=== PATIENT | female | born 1995 | race Caucasian/White ===

== ENCOUNTER 2017-04-29 03:41 | Emergency (ER) | payer OTHER ==
[~2017-04-29] VITALS: Ht 160 cm; Wt 94.0 kg
[~2017-04-29 03:41] MED LIST: FER325 PO
[2017-04-29 03:49] VITALS: Ht 160 cm; Wt 94.0 kg
[2017-04-29] MEDS ORDERED: CIPR7.5D4 RIGHT EAR (04:09)
--- NOTE | 2017-04-29 04:26 | ERA ---
ER Documentation Chief Complaint Date/Time DATE: 04/29/17 TIME: 04:22 Chief Complaint right ear pain x 4 days, 8 weeks HPI This is a 21-year-old female who is 6 weeks G1 p.o. with a chief complaint of right ear discomfort 3 days. Nursing notes says 4 days. Upon asking patient she said it was "less than a week". Patient denies history of trauma, change/loss of hearing, tinnitus, headache, dizziness,or neck stiffness. Vaccination status is up to date. No recent travel. ROS All systems reviewed and are negative except as per history of present illness. Medications Home Meds Active Scripts Ciprofloxacin Hcl/Dexameth (Ciprodex Otic Suspension) 7.5 Ml Drops.susp, 4 DROP RIGHT EAR BID for 7 Days, EA Prov:KJ CHOE PA-C 04/29/17 Reported Medications Ferrous Sulfate* (Ferrous Sulfate*) 325 Mg Tabec, 325 MG PO DAILY 01/11/14 Allergies Allergies: Coded Allergies: No Known Allergies (Verified Allergy, Mild, 06/10/13) PMhx/Soc History of Surgery: Yes (C SECTION,CHOLECYSTECTOMY) Anesthesia Reaction: No Hx Neurological Disorder: No Hx Respiratory Disorders: No Hx Cardiac Disorders: Yes (HIGH CHOL NO MEDS) Hx Psychiatric Problems: No Hx Miscellaneous Medical Probl: No Hx Alcohol Use: Yes (occassionally drinks beer) Hx Substance Use: Yes Hx Tobacco Use: No Smoking Status: Never smoker Physical Exam Vitals Vital Signs Date Time Temp Pulse Resp B/P Pulse Ox O2 Delivery O2 Flow Rate FiO2 04/29/17 03:49 98.3 88 20 130/77 100 Physical Exam Const: Morbidly obese presenting with brother no acute distress. Ears: Tender with movement of the auricle. Right external auditory canal was erythematous and edematous. Tympanic membrane visualized and was clear with light cone reflex is visualized bilaterally. Oral: No oral edema visualized. Mucous membranes moist and pink. Neck: No cervical lymphadenopathy, masses or goiter palpated. Non- tender. Trachea midline. Supple ~ No meningismus. Neur: Finger-rub test unremarkable. Awake, alert and oriented x3. Neurovascularly intact bilaterally. Pulm: No dyspnea, stridor, tripoding or drooling. Good air movement. Clear to auscultation bilaterally. Nose: Normal external nose; no discharge, septal deviation, or sinus tenderness. Head: Normocephalic, Atraumatic. Eyes: Non-injected; No scleral erythema, discharge or foreign body. EOMI and JOSEFINA bilaterally. Cardio: Regular rate and rhythm; No murmurs, gallops or rubs auscultated. Radial and posterior tibial pulses 2+ bilaterally. Capillary refill less than 2 seconds. Abd: Soft, non tender, non distended. No guarding, masses. Normal bowel sounds. No McBurney's point or suprapubic tenderness. MS: Normal motor strength, normal tone with gross examination. Skin: No petechiae or rashes. Good turgor. Back: No midline, flank or CVA tenderness. Ext: No cyanosis or edema. Normal movement of all extremities grossly observed. Psych: Normal Mood and Affect. Procedures/MDM Patient was evaluated for right ear discomfort presenting as described in the history and physical exam. The patients signs and symptoms are most consistent with otitis externa of the right ear. The treatment will thus include Ciprodex outpatient. At this time I do not suspect malignant otitis externa, hearing loss, intracranial pathology, foreign body, meningitis, or other serious bacterial infections. I have spoke with the patient regarding their condition and future management. They have verbally responded that they understand their status and treatment plan. The patient is well-appearing, vitals are stable, and their current condition is appropriate for discharge. The patient will be given discharge instructions with return precautions. Departure Diagnosis: Primary Impression: Right otitis externa Qualified Code: H60.391 - Other infective acute otitis externa of right ear Additional Impression: Right ear pain Condition: Stable Patient Instructions: External Ear Infection (Adult) Additional Instructions: Follow up with your PCP within the next 1-3 days for a more thorough evaluation and a possible referral to a specialist. Return the the emergency department immediately if symptoms worsen or change. If you have any questions regarding medications, ask your pharmacist or us before you leave. If any adverse reactions occur while taking your medications, discontinue the treatment and return to the emergency department immediately. Take your medications as directed, and complete the entire course of treatment. KJ CHOE PA-C Apr 29, 2017 04:26
== END 2017-04-29 04:25 | disposition home or self-care (01) ==
LOC: FTE 03:41
DX: O99.89 Other specified diseases and conditions complicating pregnancy, childbirth and the puerperium (principal); H60.391 Other infective otitis externa, right ear; H92.01 Otalgia, right ear; Z3A.01 Less than 8 weeks gestation of pregnancy
CPT/HCPCS: 99283